=== PATIENT | female | born 1970 | race Caucasian/White ===

== ENCOUNTER → 2018-01-02 | Day surgery (SDC) | payer OTHER ==
[~2018-01-02] VITALS: Ht 177.8 cm; Wt 64.9 kg
[~2018-01-02] MED LIST: LEVOXYL88 MCG PO; PROBIOTIC1 EACH PO; VITAMIN D1000 UNIT PO
--- NOTE | 2018-01-02 16:38 | Operative Report ---
Operative/Inv Procedure Report Surgery Date: 01/02/18 Name of Procedure: Diagnostic laparoscopy Pre-Operative Diagnosis: Pelvic pain Post-Operative Diagnosis: Same fibroid Estimated Blood Loss: less than 50ml Surgeon/Inside Trucker: Clarisa Collier MD Anesthesia: general endotracheal tube, block Operative/Procedure Note Note: Seasonal patient was taken to the operating room placed supine position after adequate induction general anesthesia via endotracheal tube block and a timeout patient was placed in dorsolithotomy position vagina from dorsal fashion the abdomen was prepped draped so fashion at this point the bladder was catheterized and lesion under anesthesia was performed hernandez speculum was placed into the vagina CO2 tenaculum was placed on the Intralipid cervix gentle downward traction this point Olmos cannula was left in place surgeon regowned and gloved at the level of the umbilicus a stab incision was made to allow for the entry of Veress needle the Veress needle the abdomen was insufflated possibly fully Z CO2 to liver edge dullness which point the Veress needle was removed a 10 mm trocar was placed through that sheath laparoscope was placed under direct visualization a 5 mm port was placed 2 fingerbreadths of symptoms pubis in midline patient tolerated that well at this point all pictures were taken on advancements removed on after pictures were taken and as well as maximal CO2 the incision the umbilicus was oversewn using 0 skin was reapproximated both incisions with 30 Marcaine was injected underneath both skin incisions sterile dressings were applied the end the case Olmos cannula was moved all once was removed from the vagina Connor was removed the patient was returned spine position she was awakened from anesthesia and transferred recovery room awake alert counts correct Findings: 14 week size fibroid uterus adnexa normal bilaterally
== END ==
LOC: STS 02:00
DX: R10.2 Pelvic and perineal pain (principal); D25.9 Leiomyoma of uterus, unspecified; E06.3 Autoimmune thyroiditis
CPT/HCPCS: 81025; 88305; C9290; J2250; J2405; J3490